=== PATIENT | female | born 1955 | race Asian ===

== ENCOUNTER 2017-03-28 23:49 | Emergency (ER) | payer MEDICARE ==
--- NOTE | 2017-03-29 00:04 | NUR ---
Patient does not wish to proceed with medical care recommended by Dr. Edwards. Patient given information related to possible complications, up to and including , which could occur as a result of leaving hospital at this time. Patient verbalizes understanding of risks involved leaving against medical advice. Patient is AAOx4. Patient has signed AMA form.
== END 2017-03-29 00:04 | disposition left against medical advice (07) ==
LOC: SED 23:49
DX: R42 Dizziness and giddiness (principal); Z53.21 Procedure and treatment not carried out due to patient leaving prior to being seen by health care provider

== ENCOUNTER 2023-04-20 20:12 | Inpatient (IN) | payer BC, MEDICARE ==
[~2023-04-20] VITALS: Ht 157.5 cm; Wt 58.5 kg
[2023-04-20 20:30] VITALS: BP_SYST 143; PULSE 128; RESP 20; TEMP 101.8; O2SAT 98
[2023-04-20] MEDS ORDERED: ACETAMINOPHEN 500 MG TABLET PO ONE (21:00)
[2023-04-20 21:32] LABS: BILIRUBIN,URINE NEGATIVE (NEGATIVE); CLARITY/URINE CLEAR (CLEAR); COLOR,URINE AMBER (YELLOW); GLUCOSE,URINE NEGATIVE (NEGATIVE); KETONES,URINE 1+ (NEGATIVE); PROTEIN URINE NEGATIVE (NEGATIVE)
[2023-04-20 21:33] LABS: BLOOD, URINE NEGATIVE (NEGATIVE); LEUKOCYTE ESTERASE ,URINE TRACE (NEGATIVE); NITRITE, URINE NEGATIVE (NEGATIVE); UROBILINOGEN,URINE 0.2 (0.2-1.0)
[2023-04-20 21:35] LABS: BACTERIA,URINE FEW /HPF (None Seen); RBC,URINE 0-3 /HPF (0-3)
[2023-04-20 21:36] LABS: BASOPHILS % (AUTO) 0.2 % (0.0-2.0); EOSINOPHILS # (AUTO) 0.1 K/uL (0.0-0.4); EOSINOPHILS % (AUTO) 0.6 % (0.0-4.0); HEMATOCRIT 36.5 % (36-48); HEMOGLOBIN 12.3 g/dL (12.0-16.0); LYMPHOCYTES # (AUTO) 1.1 K/uL (1.0-5.5); LYMPHOCYTES % (AUTO) 10.5 % (20.5-51.5); MEAN CORPUSCULAR HEMOGLOBIN 31 pg (27-31); MEAN CORPUSCULAR HGB CONC 34 % (32-36); MEAN CORPUSCULAR VOLUME 92 fL (79.0-98.0); MONOCYTES # (AUTO) 0.4 K/uL (0.0-1.0); MONOCYTES % (AUTO) 3.6 % (1.7-9.3); NEUTROPHILS # (AUTO) 9.1 K/uL (1.8-7.7); NEUTROPHILS % (AUTO) 85.1 % (40.0-70.0); PLATELET COUNT (AUTO) 273 K/uL (130-430); RED BLOOD CELL COUNT(AUTO) 3.95 MIL/uL (4.2-6.2); RED CELL DISTRIBUTION WIDTH 12.6 % (9.0-15.0); WHITE BLOOD COUNT (AUTO) 10.7 K/uL (4.8-10.8)
[2023-04-20 21:36] LABS: MUCUS,URINE 3+ /LPF (None Seen)
[2023-04-20] MEDS ORDERED: PIPERACILLIN/TAZOBACTAM 3.375 GM/VIAL (ZOSYN) IV ONE (21:42)
[2023-04-20] MEDS ORDERED: NACL 0.9% 1,000 ML IV ONE (21:45)
[2023-04-20] MEDS ORDERED: PIPERACILLIN/TAZO 3.375 GM in NS 50 ML IV ONE (21:45)
[2023-04-20 21:48] LABS: ANION GAP 11 (5-15); CALCIUM 8.5 mg/dL (8.4-11.0); CARBON DIOXIDE 26 mmol/L (23-29); CHLORIDE 96 mmol/L (98-107); CREATININE 0.77 mg/dL (0.55-1.30); GFR AFRICAN AMERICAN 96 mL/min (>90); GFR NON AFRICAN-AMERICAN 80 mL/min (>90); GLUCOSE 188 mg/dL (74-106); POTASSIUM 3.5 mmol/L (3.5-5.1); SODIUM SERUM 133 mmol/L (136-145); UREA NITROGEN, BLOOD 8 mg/dL (8-21)
[2023-04-20] MEDS ORDERED: LOSA100T24 PO (21:54)
[2023-04-20] MEDS ORDERED: ASPI-1393 PO (21:54)
[2023-04-20] MEDS ORDERED: SYN50 PO (21:54)
[2023-04-20] MEDS ORDERED: AMLO2.5T50 PO (21:54)
[2023-04-20] MEDS ORDERED: ATOR10TA68 PO (21:54)
[2023-04-20 21:58] LABS: PROTHROMBIN TIME 10.3 SECS (9.5-12.5)
[2023-04-20 22:20] LABS: ALANINE AMINOTRANSFERASE 19 U/L (12-78); ALBUMIN 3.2 g/dL (3.4-4.8); AMYLASE 27 U/L (0-100); ASPARTATE AMINOTRANSFERASE 21 U/L (10-37); LIPASE 33 U/L (73-393); TOTAL BILIRUBIN 0.9 mg/dL (0.0-1.0); TOTAL PROTEIN, SERUM 6.9 g/dL (6.4-8.3)
[2023-04-20] MEDS ORDERED: VANCOMYCIN HCL 750 MG in NS 250 ML IV SCH (22:30)
[2023-04-20] MEDS: ONDANSETRON HCL 4 MG/2 ML VIAL IVP PRN (22:31)
[2023-04-20] MEDS: MORPHINE 2 MG/ML INJ. SYRINGE IVP PRN (22:31)
[2023-04-20 22:33] LABS: ACETONE, SERUM NEGATIVE (NEGATIVE)
[2023-04-20 23:07] VITALS: BP_SYST 113; PULSE 86; RESP 16; TEMP 99.7
[2023-04-20] MEDS: NACL 0.9% 1,000 ML IV SCH (23:29)
[2023-04-20 23:30] VITALS: O2SAT 94
[2023-04-21] VITALS (7 sets, daily range): BP systolic 106–131; PULSE 81–89; RESP 15–19; TEMP 97.6–100.2; O2SAT 95–98
[2023-04-21] MEDS ORDERED: VANCOMYCIN HCL 500 MG/VIAL IV ONE (00:34)
[2023-04-21] MEDS: MORPHINE 2 MG/ML INJ. SYRINGE IVP PRN ×3 (03:52→20:41)
[2023-04-21 06:36] LABS: BASOPHILS # (AUTO) 0.1 K/uL (0.0-0.2); BASOPHILS % (AUTO) 0.8 % (0.0-2.0); EOSINOPHILS # (AUTO) 0.1 K/uL (0.0-0.4); EOSINOPHILS % (AUTO) 0.5 % (0.0-4.0); HEMATOCRIT 32.5 % (36-48); HEMOGLOBIN 10.6 g/dL (12.0-16.0); LYMPHOCYTES # (AUTO) 1.6 K/uL (1.0-5.5); LYMPHOCYTES % (AUTO) 9.5 % (20.5-51.5); MEAN CORPUSCULAR HEMOGLOBIN 30 pg (27-31); MEAN CORPUSCULAR HGB CONC 33 % (32-36); MEAN CORPUSCULAR VOLUME 93 fL (79.0-98.0); MONOCYTES # (AUTO) 0.7 K/uL (0.0-1.0); MONOCYTES % (AUTO) 4.2 % (1.7-9.3); NEUTROPHILS # (AUTO) 14.2 K/uL (1.8-7.7); PLATELET COUNT (AUTO) 230 K/uL (130-430); RED BLOOD CELL COUNT(AUTO) 3.51 MIL/uL (4.2-6.2); RED CELL DISTRIBUTION WIDTH 12.5 % (9.0-15.0); WHITE BLOOD COUNT (AUTO) 16.7 K/uL (4.8-10.8)
[2023-04-21 06:45] LABS: CALCIUM 8.1 mg/dL (8.4-11.0); CREATININE 0.59 mg/dL (0.55-1.30); POTASSIUM 4.1 mmol/L (3.5-5.1)
[2023-04-21] MEDS ORDERED: ZOLPIDEM TARTRATE 5 MG TABLET PO PRN (07:45)
[2023-04-21] MEDS ORDERED: MAGNESIUM SULFATE 50 ML IV PRN (07:45)
[2023-04-21] MEDS ORDERED: LORazepam 2 MG/ML VIAL IVP PRN (07:45)
[2023-04-21] MEDS ORDERED: MORPHINE 2 MG/ML INJ. SYRINGE IVP PRN (07:45)
[2023-04-21] MEDS ORDERED: ONDANSETRON HCL 4 MG/2 ML VIAL IVP PRN (07:45)
[2023-04-21] MEDS ORDERED: MUPIROCIN 2% TOPICAL OINTMENT 22 GM NS PRN (07:45)
[2023-04-21] MEDS ORDERED: POTASSIUM CHLORIDE 20 MEQ TAB.PRT.SR PO PRN (07:45)
[2023-04-21] MEDS ORDERED: NALOXONE HCL 0.4 MG/ML AMP (NARCAN) IVP PRN ×2 (07:45)
[2023-04-21] MEDS ORDERED: DOCUSATE SODIUM 100 MG CAPSULE PO PRN (07:45)
[2023-04-21] MEDS ORDERED: METOPROLOL TARTRATE 5 MG/5 ML VIAL IVP PRN (08:00)
[2023-04-21] MEDS ORDERED: ACETAMINOPHEN 325 MG TABLET PO PRN (08:00)
[2023-04-21] MEDS: PIPERACILLIN/TAZO 3.375/DEX-IS 50 ML IV SCH ×4 (08:29→23:56)
[2023-04-21] MEDS ORDERED: LEVOTHYROXINE SODIUM 0.05 MG TABLET PO ONE (08:30)
[2023-04-21] MEDS: NACL 0.9% 1,000 ML IV SCH ×3 (08:30→23:57)
[2023-04-21] MEDS: ASPIRIN 81 MG TABLET(ECOTRIN) PO SCH (09:34)
[2023-04-21] MEDS: ATORVASTATIN 10 MG TABLET PO SCH (09:34)
[2023-04-21] MEDS: LOSARTAN POTASSIUM 50 MG TABLET (COZAAR) PO SCH (09:35)
[2023-04-21] MEDS: FLUCONAZOLE 200 mg/ NS 100 ML IV SCH (11:17)
[2023-04-21] MEDS ORDERED: DIATR MEGLU/DIATRIZ SOD 30 ML SOLUTION PO ONE (12:33)
[2023-04-21] MEDS: VANCOMYCIN HCL 750 MG in NS 250 ML IV SCH (14:37)
[2023-04-21] MEDS: ACETAMINOPHEN 325 MG TABLET PO PRN (20:41)
[2023-04-22] VITALS (12 sets, daily range): BP systolic 97–119; PULSE 76–98; RESP 15–18; TEMP 96.9–98.8; O2SAT 94–98
[2023-04-22] MEDS: VANCOMYCIN HCL 750 MG in NS 250 ML IV SCH ×2 (02:16→14:00)
[2023-04-22 05:13] LABS: BASOPHILS # (AUTO) 0.1 K/uL (0.0-0.2); BASOPHILS % (AUTO) 0.4 % (0.0-2.0); EOSINOPHILS # (AUTO) 0.2 K/uL (0.0-0.4); HEMATOCRIT 32.6 % (36-48); HEMOGLOBIN 10.7 g/dL (12.0-16.0); LYMPHOCYTES # (AUTO) 1.3 K/uL (1.0-5.5); LYMPHOCYTES % (AUTO) 7.7 % (20.5-51.5); MEAN CORPUSCULAR HEMOGLOBIN 30 pg (27-31); MEAN CORPUSCULAR HGB CONC 33 % (32-36); MEAN CORPUSCULAR VOLUME 92 fL (79.0-98.0); MONOCYTES # (AUTO) 0.9 K/uL (0.0-1.0); MONOCYTES % (AUTO) 5.4 % (1.7-9.3); NEUTROPHILS # (AUTO) 14.5 K/uL (1.8-7.7); NEUTROPHILS % (AUTO) 85.5 % (40.0-70.0); PLATELET COUNT (AUTO) 256 K/uL (130-430); RED BLOOD CELL COUNT(AUTO) 3.53 MIL/uL (4.2-6.2); RED CELL DISTRIBUTION WIDTH 12.6 % (9.0-15.0)
[2023-04-22 05:22] LABS: CALCIUM 8.3 mg/dL (8.4-11.0); CREATININE 0.64 mg/dL (0.55-1.30); POTASSIUM 3.3 mmol/L (3.5-5.1)
[2023-04-22] MEDS: PIPERACILLIN/TAZO 3.375/DEX-IS 50 ML IV SCH ×4 (06:28→23:14)
[2023-04-22] MEDS: LEVOTHYROXINE SODIUM 0.05 MG TABLET PO SCH (06:28)
[2023-04-22] MEDS: LOSARTAN POTASSIUM 50 MG TABLET (COZAAR) PO SCH (09:06)
[2023-04-22] MEDS: ASPIRIN 81 MG TABLET(ECOTRIN) PO SCH (09:06)
[2023-04-22] MEDS: ATORVASTATIN 10 MG TABLET PO SCH (09:06)
[2023-04-22] MEDS: FLUCONAZOLE 200 mg/ NS 100 ML IV SCH (09:23)
[2023-04-22] MEDS: MORPHINE 2 MG/ML INJ. SYRINGE IVP PRN (09:25)
[2023-04-22] MEDS ORDERED: ROCURONIUM BROMIDE 10 MG/ML (ZEMURON) ONE (14:00)
[2023-04-22] MEDS ORDERED: MIDAZOLAM HCL 2 MG/2 ML VIAL (VERSED) ONE (14:00)
[2023-04-22] MEDS ORDERED: VANCOMYCIN HCL 1000 MG/VIAL IV ONE (14:00)
[2023-04-22] MEDS ORDERED: PROPOFOL 200MG/ 20ML VIAL (DIPRIVAN) IV ONE (14:00)
[2023-04-22] MEDS ORDERED: NS IRRIG SOLN 1000 ML IR ONE (14:00)
[2023-04-22] MEDS ORDERED: HYDROmorphone 2 MG/ML VIAL ONE (14:00)
[2023-04-22] MEDS ORDERED: ePHEDrine sulfate 50 MG/ML VIAL ONE (14:00)
[2023-04-22] MEDS ORDERED: KETOROLAC TROMETHAMINE 30 MG VIAL ONE (14:00)
[2023-04-22] MEDS ORDERED: NEOSTIGMINE METHYLSULFATE 1 MG/ML, 10 ML VIAL ONE (14:00)
[2023-04-22] MEDS ORDERED: SEVOFLURANE 15 MIN GAS INH ONE (14:00)
[2023-04-22] MEDS ORDERED: BUPIVACAINE /PF 0.25% 30 ML VIAL INJ ONE (14:00)
[2023-04-22] MEDS ORDERED: LR 1,000 ML IV.SOLN IV ONE (14:00)
[2023-04-22] MEDS ORDERED: ONDANSETRON HCL 4 MG/2 ML VIAL ONE (14:00)
[2023-04-22] MEDS ORDERED: GLYCOPYRROLATE 0.2 MG/ML VIAL ONE (14:00)
[2023-04-22] MEDS ORDERED: METOCLOPRAMIDE HCL 10 MG/2 ML VIAL ONE (14:00)
[2023-04-22] MEDS: NACL 0.9% 1,000 ML IV SCH ×2 (14:00→18:04)
[2023-04-22] MEDS ORDERED: ACETAMINOPHEN I.V. 1000 MG 100 ML IV ONE (15:21)
[2023-04-22] MEDS ORDERED: LR 1,000 ML IV SCH (15:45)
[2023-04-22] MEDS ORDERED: HYDROmorphone 1 MG/ML INJ. CARTRIDGE IVP PRN (15:45)
[2023-04-22] MEDS ORDERED: ONDANSETRON HCL 4 MG/2 ML VIAL IVP PRN ×2 (15:45→16:15)
[2023-04-22] MEDS ORDERED: HYDROmorphone 2 MG/ML VIAL IVP PRN (15:45)
[2023-04-22] MEDS ORDERED: KETOROLAC TROMETHAMINE 30 MG VIAL IVP PRN (15:45)
[2023-04-22] MEDS ORDERED: NALOXONE HCL 0.4 MG/ML AMP (NARCAN) IVP PRN (16:15)
[2023-04-22] MEDS ORDERED: KETOROLAC TROMETHAMINE 15 MG VIAL IVP PRN (16:15)
[2023-04-22] MEDS ORDERED: HYDROmorphone 1 MG/ML INJ. CARTRIDGE ONE (16:58)
[2023-04-23] MEDS: VANCOMYCIN HCL 750 MG in NS 250 ML IV SCH (01:16)
[2023-04-23 01:58] VITALS: BP_SYST 101; PULSE 75; RESP 17; TEMP 98.3; O2SAT 95
[2023-04-23] MEDS: NACL 0.9% 1,000 ML IV SCH ×5 (02:15→18:59)
[2023-04-23] MEDS: ONDANSETRON HCL 4 MG/2 ML VIAL IVP PRN (03:10)
[2023-04-23 03:14] VITALS: BP_SYST 116; PULSE 77; RESP 18; TEMP 97.3; O2SAT 97
[2023-04-23] MEDS: PIPERACILLIN/TAZO 3.375/DEX-IS 50 ML IV SCH ×3 (05:11→17:34)
[2023-04-23 05:15] LABS: BASOPHILS # (AUTO) 0.1 K/uL (0.0-0.2); BASOPHILS % (AUTO) 0.6 % (0.0-2.0); EOSINOPHILS % (AUTO) 0.1 % (0.0-4.0); HEMATOCRIT 30.7 % (36-48); HEMOGLOBIN 10.2 g/dL (12.0-16.0); LYMPHOCYTES # (AUTO) 0.7 K/uL (1.0-5.5); LYMPHOCYTES % (AUTO) 4.1 % (20.5-51.5); MEAN CORPUSCULAR HEMOGLOBIN 31 pg (27-31); MEAN CORPUSCULAR HGB CONC 33 % (32-36); MEAN CORPUSCULAR VOLUME 93 fL (79.0-98.0); MONOCYTES # (AUTO) 1.2 K/uL (0.0-1.0); MONOCYTES % (AUTO) 7.1 % (1.7-9.3); NEUTROPHILS # (AUTO) 14.3 K/uL (1.8-7.7); NEUTROPHILS % (AUTO) 88.1 % (40.0-70.0); PLATELET COUNT (AUTO) 267 K/uL (130-430); RED BLOOD CELL COUNT(AUTO) 3.31 MIL/uL (4.2-6.2); RED CELL DISTRIBUTION WIDTH 12.6 % (9.0-15.0); WHITE BLOOD COUNT (AUTO) 16.3 K/uL (4.8-10.8)
[2023-04-23 05:47] LABS: CALCIUM 7.6 mg/dL (8.4-11.0); CREATININE 1.9 mg/dL (0.55-1.30); TOTAL BILIRUBIN 0.8 mg/dL (0.0-1.0); TOTAL PROTEIN, SERUM 5.6 g/dL (6.4-8.3)
[2023-04-23] MEDS: LEVOTHYROXINE SODIUM 0.05 MG TABLET PO SCH (06:21)
[2023-04-23 08:00] VITALS: BP_SYST 119; PULSE 70; RESP 18; TEMP 98.1; O2SAT 98
[2023-04-23] MEDS: LOSARTAN POTASSIUM 50 MG TABLET (COZAAR) PO SCH (08:49)
[2023-04-23] MEDS: ASPIRIN 81 MG TABLET(ECOTRIN) PO SCH (08:49)
[2023-04-23] MEDS: ATORVASTATIN 10 MG TABLET PO SCH (08:50)
[2023-04-23] MEDS ORDERED: NS 500 ML IV ONE (09:00)
[2023-04-23] MEDS: HYDROmorphone 1 MG/ML INJ. CARTRIDGE IVP PRN ×2 (09:46→18:57)
[2023-04-23] MEDS: FLUCONAZOLE 200 mg/ NS 100 ML IV SCH (10:44)
[2023-04-23 11:36] VITALS: BP_SYST 101; PULSE 73; RESP 18; TEMP 97.5; O2SAT 97
[2023-04-23 16:00] VITALS: BP_SYST 106; PULSE 75; RESP 18; TEMP 97; O2SAT 97
[2023-04-24 00:16] VITALS: BP_SYST 122; PULSE 79; RESP 13; TEMP 96.6; O2SAT 96
[2023-04-24] MEDS: PIPERACILLIN/TAZO 3.375/DEX-IS 50 ML IV SCH ×4 (00:27→17:46)
[2023-04-24] MEDS: HYDROmorphone 1 MG/ML INJ. CARTRIDGE IVP PRN ×2 (04:22→14:38)
[2023-04-24 05:41] LABS: BASOPHILS % (AUTO) 0.2 % (0.0-2.0); EOSINOPHILS # (AUTO) 0.3 K/uL (0.0-0.4); EOSINOPHILS % (AUTO) 1.9 % (0.0-4.0); HEMATOCRIT 29.5 % (36-48); HEMOGLOBIN 9.7 g/dL (12.0-16.0); LYMPHOCYTES # (AUTO) 0.9 K/uL (1.0-5.5); MEAN CORPUSCULAR HEMOGLOBIN 30 pg (27-31); MEAN CORPUSCULAR HGB CONC 33 % (32-36); MEAN CORPUSCULAR VOLUME 93 fL (79.0-98.0); MONOCYTES # (AUTO) 1.1 K/uL (0.0-1.0); MONOCYTES % (AUTO) 7.5 % (1.7-9.3); NEUTROPHILS # (AUTO) 12.2 K/uL (1.8-7.7); NEUTROPHILS % (AUTO) 84.4 % (40.0-70.0); PLATELET COUNT (AUTO) 286 K/uL (130-430); RED BLOOD CELL COUNT(AUTO) 3.19 MIL/uL (4.2-6.2); RED CELL DISTRIBUTION WIDTH 12.9 % (9.0-15.0); WHITE BLOOD COUNT (AUTO) 14.5 K/uL (4.8-10.8)
[2023-04-24] MEDS: NACL 0.9% 1,000 ML IV SCH ×2 (05:42→18:15)
[2023-04-24 05:58] LABS: CALCIUM 7.9 mg/dL (8.4-11.0); CREATININE 3.15 mg/dL (0.55-1.30); POTASSIUM 4.1 mmol/L (3.5-5.1); VANCOMYCIN,RANDOM 26.7 ug/mL
[2023-04-24] MEDS: LEVOTHYROXINE SODIUM 0.05 MG TABLET PO SCH (06:30)
[2023-04-24 08:00] VITALS: BP_SYST 133; PULSE 78; RESP 18; TEMP 98.1; O2SAT 94
[2023-04-24] MEDS: ASPIRIN 81 MG TABLET(ECOTRIN) PO SCH (09:25)
[2023-04-24] MEDS: ATORVASTATIN 10 MG TABLET PO SCH (09:25)
[2023-04-24] MEDS: LOSARTAN POTASSIUM 50 MG TABLET (COZAAR) PO SCH (09:25)
[2023-04-24] MEDS: FLUCONAZOLE 200 mg/ NS 100 ML IV SCH (09:50)
[2023-04-24 11:51] VITALS: BP_SYST 134; PULSE 75; RESP 18; TEMP 98; O2SAT 98
[2023-04-24 16:00] VITALS: BP_SYST 133; PULSE 77; RESP 18; TEMP 98.3; O2SAT 96
[2023-04-24 20:00] VITALS: BP_SYST 143; PULSE 77; RESP 17; TEMP 97.9; O2SAT 94; O2SAT 95
[2023-04-25] MEDS: HYDROmorphone 1 MG/ML INJ. CARTRIDGE IVP PRN (00:30)
[2023-04-25] MEDS: PIPERACILLIN/TAZO 3.375/DEX-IS 50 ML IV SCH ×4 (00:30→18:30)
[2023-04-25 00:42] VITALS: BP_SYST 135; PULSE 73; RESP 18; TEMP 97.9; O2SAT 94
[2023-04-25 05:03] LABS: BASOPHILS % (AUTO) 0.4 % (0.0-2.0); EOSINOPHILS # (AUTO) 0.3 K/uL (0.0-0.4); EOSINOPHILS % (AUTO) 2.3 % (0.0-4.0); HEMATOCRIT 29.3 % (36-48); HEMOGLOBIN 9.7 g/dL (12.0-16.0); LYMPHOCYTES # (AUTO) 1.1 K/uL (1.0-5.5); LYMPHOCYTES % (AUTO) 8.3 % (20.5-51.5); MEAN CORPUSCULAR HEMOGLOBIN 31 pg (27-31); MEAN CORPUSCULAR HGB CONC 33 % (32-36); MEAN CORPUSCULAR VOLUME 93 fL (79.0-98.0); MONOCYTES % (AUTO) 7.5 % (1.7-9.3); NEUTROPHILS # (AUTO) 10.5 K/uL (1.8-7.7); NEUTROPHILS % (AUTO) 81.5 % (40.0-70.0); PLATELET COUNT (AUTO) 347 K/uL (130-430); RED BLOOD CELL COUNT(AUTO) 3.15 MIL/uL (4.2-6.2); RED CELL DISTRIBUTION WIDTH 12.9 % (9.0-15.0); WHITE BLOOD COUNT (AUTO) 12.9 K/uL (4.8-10.8)
[2023-04-25 05:27] LABS: CALCIUM 8.5 mg/dL (8.4-11.0); CREATININE 3.72 mg/dL (0.55-1.30); POTASSIUM 4.2 mmol/L (3.5-5.1); VANCOMYCIN,RANDOM 21.1 ug/mL
[2023-04-25] MEDS: NACL 0.9% 1,000 ML IV SCH ×3 (06:21→18:31)
[2023-04-25] MEDS: LEVOTHYROXINE SODIUM 0.05 MG TABLET PO SCH (06:21)
[2023-04-25 08:00] VITALS: BP_SYST 136; PULSE 76; RESP 16; TEMP 98.4; O2SAT 96; O2SAT 98
[2023-04-25] MEDS: LOSARTAN POTASSIUM 50 MG TABLET (COZAAR) PO SCH (09:11)
[2023-04-25] MEDS: ASPIRIN 81 MG TABLET(ECOTRIN) PO SCH (09:12)
[2023-04-25] MEDS: ATORVASTATIN 10 MG TABLET PO SCH (09:12)
[2023-04-25] MEDS: FLUCONAZOLE 200 mg/ NS 100 ML IV SCH (10:28)
[2023-04-25 12:00] VITALS: BP_SYST 137; PULSE 75; RESP 17; TEMP 98.1; O2SAT 98
[2023-04-25] MEDS: ACETAMINOPHEN 325 MG TABLET PO PRN (14:39)
[2023-04-25 16:00] VITALS: BP_SYST 135; PULSE 77; RESP 16; TEMP 98.2; O2SAT 97
[2023-04-25 20:00] VITALS: BP_SYST 141; PULSE 20; RESP 20; TEMP 98.1; O2SAT 96
[2023-04-25] MEDS: MORPHINE 2 MG/ML INJ. SYRINGE IVP PRN (20:27)
[2023-04-25 20:30] VITALS: O2SAT 95
[2023-04-26] MEDS: MORPHINE 2 MG/ML INJ. SYRINGE IVP PRN (00:37)
[2023-04-26] MEDS: PIPERACILLIN/TAZO 3.375/DEX-IS 50 ML IV SCH ×4 (00:37→17:20)
[2023-04-26] MEDS: NACL 0.9% 1,000 ML IV SCH ×4 (00:39→22:07)
[2023-04-26 00:59] VITALS: BP_SYST 150; PULSE 68; RESP 17; TEMP 97.2; O2SAT 96
[2023-04-26 05:50] LABS: BASOPHILS # (AUTO) 0.1 K/uL (0.0-0.2); BASOPHILS % (AUTO) 1.2 % (0.0-2.0); EOSINOPHILS # (AUTO) 0.3 K/uL (0.0-0.4); EOSINOPHILS % (AUTO) 2.5 % (0.0-4.0); HEMATOCRIT 28.7 % (36-48); HEMOGLOBIN 9.4 g/dL (12.0-16.0); LYMPHOCYTES # (AUTO) 1.3 K/uL (1.0-5.5); LYMPHOCYTES % (AUTO) 11.8 % (20.5-51.5); MEAN CORPUSCULAR HEMOGLOBIN 31 pg (27-31); MEAN CORPUSCULAR HGB CONC 33 % (32-36); MEAN CORPUSCULAR VOLUME 93 fL (79.0-98.0); MONOCYTES # (AUTO) 0.9 K/uL (0.0-1.0); MONOCYTES % (AUTO) 7.7 % (1.7-9.3); NEUTROPHILS # (AUTO) 8.5 K/uL (1.8-7.7); NEUTROPHILS % (AUTO) 76.8 % (40.0-70.0); PLATELET COUNT (AUTO) 350 K/uL (130-430); RED BLOOD CELL COUNT(AUTO) 3.09 MIL/uL (4.2-6.2); RED CELL DISTRIBUTION WIDTH 13.2 % (9.0-15.0); WHITE BLOOD COUNT (AUTO) 11.1 K/uL (4.8-10.8)
[2023-04-26 06:08] LABS: CALCIUM 8.2 mg/dL (8.4-11.0); CREATININE 3.03 mg/dL (0.55-1.30)
[2023-04-26] MEDS: LEVOTHYROXINE SODIUM 0.05 MG TABLET PO SCH (06:47)
[2023-04-26 08:00] VITALS: BP_SYST 153; PULSE 78; RESP 18; TEMP 98.9; O2SAT 100; O2SAT 96
[2023-04-26] MEDS: ASPIRIN 81 MG TABLET(ECOTRIN) PO SCH (08:42)
[2023-04-26] MEDS: LOSARTAN POTASSIUM 50 MG TABLET (COZAAR) PO SCH (08:42)
[2023-04-26] MEDS: ATORVASTATIN 10 MG TABLET PO SCH (08:42)
[2023-04-26] MEDS: FLUCONAZOLE 200 mg/ NS 100 ML IV SCH (10:49)
[2023-04-26 12:00] VITALS: BP_SYST 149; PULSE 77; RESP 17; TEMP 98; O2SAT 96
[2023-04-26 16:00] VITALS: BP_SYST 145; PULSE 76; RESP 18; TEMP 98.8; O2SAT 97
[2023-04-26 20:00] VITALS: BP_SYST 149; PULSE 74; RESP 18; TEMP 96.8; O2SAT 94
[2023-04-27] VITALS: BP_SYST 136; PULSE 80; RESP 18; TEMP 97; O2SAT 95
[2023-04-27] MEDS: PIPERACILLIN/TAZO 3.375/DEX-IS 50 ML IV SCH ×2 (00:34→06:39)
[2023-04-27 05:51] LABS: CALCIUM 8.1 mg/dL (8.4-11.0); CREATININE 2.22 mg/dL (0.55-1.30); POTASSIUM 3.5 mmol/L (3.5-5.1); VANCOMYCIN,RANDOM 10.1 ug/mL
[2023-04-27] MEDS: NACL 0.9% 1,000 ML IV SCH (06:35)
[2023-04-27] MEDS: LEVOTHYROXINE SODIUM 0.05 MG TABLET PO SCH (06:41)
[2023-04-27 08:00] VITALS: BP_SYST 156; PULSE 74; RESP 18; TEMP 98.1; O2SAT 97
[2023-04-27] MEDS ORDERED: HYDR-3917 PO (08:15)
[2023-04-27] MEDS: ATORVASTATIN 10 MG TABLET PO SCH (08:32)
[2023-04-27] MEDS: ASPIRIN 81 MG TABLET(ECOTRIN) PO SCH (08:32)
[2023-04-27] MEDS: LOSARTAN POTASSIUM 50 MG TABLET (COZAAR) PO SCH (08:33)
[2023-04-27 09:14] VITALS: O2SAT 97
[2023-04-27] MEDS: FLUCONAZOLE 200 mg/ NS 100 ML IV SCH (10:00)
[2023-04-27 10:07] VITALS: BP_SYST 149; PULSE 77; RESP 18; TEMP 98.2; O2SAT 97
== END 2023-04-27 11:29 | disposition home or self-care (01) | DRG 853 ==
LOC: SED 20:12 → STU 21:50 → SMU 04-21 17:27
PROVIDERS: ADMIT General Practice; ATTEND General Practice
PROC: 0D1B0Z4 Bypass Ileum to Cutaneous, Open Approach (ICD-10-PCS; 2023-04-22)
PROC: 0DQU0ZZ Repair Omentum, Open Approach (ICD-10-PCS; principal; 2023-04-22 14:14)
DX: A41.9 Sepsis, unspecified organism (principal); K57.21 Diverticulitis of large intestine with perforation and abscess with bleeding; K65.9 Peritonitis, unspecified; N17.0 Acute kidney failure with tubular necrosis; C18.9 Malignant neoplasm of colon, unspecified; I10 Essential (primary) hypertension; F17.210 Nicotine dependence, cigarettes, uncomplicated; E78.5 Hyperlipidemia, unspecified; K66.9 Disorder of peritoneum, unspecified; E03.9 Hypothyroidism, unspecified; Z85.038 Personal history of other malignant neoplasm of large intestine; Z80.0 Family history of malignant neoplasm of digestive organs; Z79.899 Other long term (current) drug therapy; Z79.82 Long term (current) use of aspirin
CPT/HCPCS: 36415; 71045; 74018; 76376; 80048; 80053; 80202; 81000; 82009; 82150; 83037; 83605; 83690; 83735; 83880; 85025; 85610-TC; 85730-TC; 86886; 86900; 86901; 87040; 87070-TC; 87075-TC; 87081; 87086; 93005; 93306; 96365; 99285; A4409; G0378; J0131; J1170; J1450; J1885; J2270; J2405; J2543; J2704; J2710; J2765; J3370; J3465; J3490; J7030; J7050; J7120; Q9964; Q9967